=== PATIENT | female | born 1975 | race African-American/Black ===

== ENCOUNTER 2016-11-21 22:16 | Emergency (ER) | payer OTHER ==
[~2016-11-21] VITALS: Ht 149.9 cm; Wt 59.0 kg
[~2016-11-21 22:16] MED LIST: LIORESAL 10MG T10 MG PO; MOTRIN 600 MG600 MG PO; ULTRAM(MONOGRAP50 MG PO
[2016-11-21 22:30] VITALS: BP 122/85
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
[2016-11-22] MEDS ORDERED: IBUPROFEN800 M1 PO (01:52)
[2016-11-22] MEDS ORDERED: CYCLOBENZAPRINE10 M1 PO (01:52)
== END 2016-11-22 03:07 ==
LOC: ERH 22:16
DX: S09.90XA Unspecified injury of head, initial encounter (principal); S46.911A Strain of unspecified muscle, fascia and tendon at shoulder and upper arm level, right arm, initial encounter; M62.838 Other muscle spasm; M54.2 Cervicalgia; V49.40XA Driver injured in collision with unspecified motor vehicles in traffic accident, initial encounter; Y92.412 Parkway as the place of occurrence of the external cause
CPT/HCPCS: 73030-RT